=== PATIENT | female | born 1985 | race Caucasian/White ===

== ENCOUNTER 2017-06-08 01:15 | Emergency (ER) | payer OTHER ==
[~2017-06-08] VITALS: Ht 165.1 cm; Wt 74.8 kg
[2017-06-08] MEDS ORDERED: ADDERALL20 MG PO (01:32)
== END 2017-06-08 02:09 | disposition home or self-care (01) ==
LOC: SED 01:15
DX: S40.862A Insect bite (nonvenomous) of left upper arm, initial encounter (principal); F90.9 Attention-deficit hyperactivity disorder, unspecified type; F41.9 Anxiety disorder, unspecified; F17.200 Nicotine dependence, unspecified, uncomplicated; Z23 Encounter for immunization; W57.XXXA Bitten or stung by nonvenomous insect and other nonvenomous arthropods, initial encounter
CPT/HCPCS: 90471; 90715; 96372; 99283; J2930